=== PATIENT | male | born 1940 | race Caucasian/White ===

== ENCOUNTER → 2016-05-04 | Outpatient (CLI) | payer OTHER | LOC: BHFA 15:30 | PROVIDERS: ATTEND Internal Medicine Cardiovascular Disease | DX: I48.91 Unspecified atrial fibrillation (principal); I35.9 Nonrheumatic aortic valve disorder, unspecified; I27.2 Other secondary pulmonary hypertension ==

== ENCOUNTER → 2016-10-29 | Outpatient (CLI) | payer OTHER | LOC: BHFA 13:45 | PROVIDERS: ATTEND Internal Medicine Interventional Cardiology | DX: I48.91 Unspecified atrial fibrillation (principal) ==

== ENCOUNTER 2016-10-30 06:58 | Emergency (ER) | payer OTHER ==
[2016-10-30] MEDS ORDERED: ONDANSETRON 4 MG/2 ML VIAL IVP ONE (07:06)
[2016-10-30] MEDS ORDERED: NS 1,000 ML IV ONE (07:06)
--- NOTE | 2016-10-30 07:10 | EDPHY ---
H & P Time Seen by Provider: 10/30/16 07:06 HPI/ROS: CHIEF COMPLAINT: Confusion HISTORY OF PRESENT ILLNESS: The patient is a 76-year-old man whose called paramedics reporting that he had a seizure. They were both asleep in bed this morning when he began acting very confused and agitated. He was nonverbal and trying to take off his CPAP machine. His states that he had a seizure about a year ago and presented a similar fashion. No myoclonic movements seen. No incontinence. Slight oral trauma. The patient last time had a CT scan, MRI and EEG that were negative and was eventually placed on seizure medication which he discontinued in August. He has not had any recent infections or illnesses. No recent trauma. He does seem to be clearing gradually. He did not have any focal weakness for EMS and had a normal blood sugar. He was given Versed. According to the medical record he also had an episode of paroxysmal AFib last year as well as a history of aortic valve replacement but he is no longer on any blood thinners. REVIEW OF SYSTEMS: Constitutional: denies: chills, fever, recent illness, recent injury EENTM: denies: blurred vision, double vision, nose congestion Respiratory: denies: cough, shortness of breath Cardiac: denies: chest pain, irregular heart rate, lightheadedness, palpitations Gastrointestinal/Abdominal: denies: abdominal pain, diarrhea, nausea, vomiting, blood streaked stools Genitourinary: denies: dysuria, frequency, hematuria, pain Musculoskeletal: denies: joint pain, muscle pain Skin: denies: lesions, rash, jaundice, bruising Neurological: See HPI Hematologic/Lymphatic: denies: blood clots, easy bleeding, easy bruising Immunologic/allergic: denies: HIV/AIDS, transplant EXAM: GENERAL: well-nourished and in no acute distress. HEAD: Atraumatic, normocephalic. EYES: Pupils equal round and reactive to light, extraocular movements intact, sclera anicteric, conjunctiva are normal. ENT: Bruising to anterior tongue, TMs normal, nares patent, oropharynx clear without exudates. Moist mucous membranes. NECK: Normal range of motion, supple without lymphadenopathy or JVD. LUNGS: Breath sounds clear to auscultation bilaterally and equal. No wheezes rales or rhonchi. HEART: Regular rate and rhythm without murmurs, rubs or gallops. ABDOMEN: Soft, nontender, normoactive bowel sounds. No guarding, no rebound. No masses appreciated. BACK: No CVA tenderness, no spinal tenderness, step-offs or deformities EXTREMITIES: Normal range of motion, no pitting or edema. No clubbing or cyanosis. NEUROLOGICAL: Moving all extremities spontaneously, confused, will follow some commands, will smile equally. With state his name and identify his . Tracks. PSYCH: Normal mood, normal affect. SKIN: Warm, dry, normal turgor, no visible rashes or lesions. Source: Patient, EMS Exam Limitations: No limitations - Medical/Surgical History Hx Asthma: No Hx Chronic Respiratory Disease: No Hx Diabetes: No Hx Cardiac Disease: Yes Hx Renal Disease: No Hx Cirrhosis: No Hx Alcoholism: No Hx HIV/AIDS: No Hx Splenectomy or Spleen Trauma: No Other PMH: Paroxysmal A-FIB, VALVE REPLACED, BACK SURGERY, - Family History Significant Family History: No pertinent family hx - Social History Smoking Status: Former smoker Alcohol Use: Sober Drug Use: None Constitutional: Initial Vital Signs Temperature (C) 36.6 C 10/30/16 07:10 Heart Rate 82 10/30/16 07:10 Respiratory Rate 16 10/30/16 07:10 Blood Pressure 127/77 H 10/30/16 07:10 O2 Sat (%) 93 10/30/16 07:10 O2 Delivery Mode Room Air Allergies/Adverse Reactions: No Known Allergies Allergy (Unverified 10/30/16 07:09) Home Medications: Medication Instructions Recorded Ascorbic Acid [Vitamin C 500 mg 500 mg PO DAILY 01/24/15 (*)] Cholecalciferol Vit D3 [Vitamin D3 1,000 units PO DAILY 01/24/15 (*)] Multivitamins [Multivitamin (*)] 1 each PO DAILY 01/24/15 [place]-3 Fatty Acids [Fish Oil 1000 1,000 mg PO DAILY 01/24/15 mg (*)] Aspirin EC [Aspirin EC 81 mg (*)] 81 mg PO DAILY 06/28/15 Atorvastatin Calcium [Lipitor 10 10 mg PO HS 06/28/15 mg (*)] Metoprolol Tartrate [Lopressor 25 25 mg PO BID #0 tab 06/30/15 mg (*)] Warfarin Sodium [Coumadin 5MG (*)] 5 mg PO DAILY16 #20 tab 06/30/15 levETIRAcetam [Keppra 500 mg (*)] 500 mg PO BID #60 tab 10/30/16 Medical Decision Making - Diagnostics EKG Interpretation: An EKG obtained and was read and documented in trace view. Please see trace view for full reading and report. Sinus rhythm, first-degree block, no acute ischemic changes Imaging Results: Imaging Impressions Head CT 10/30/16 07:07 Impression: 1. No acute intracranial hemorrhage, mass, or swelling. 2. Punctate densities subarachnoid space may be sequela from old infection such as neurocysticercosis or sequela from remote myelogram utilizing Pantopaque contrast. The study was performed as an emergency on-call case and discussed by telephone with Dr. Tenorio at 7:40 AM. The final interpretation is concordant with the original communication. Imaging: Discussed imaging studies w/ crochet beader Radiologist ED Course/Re-evaluation: We discussed the imaging and lab results. The patient has cleared. He is answering all questions appropriately. He is moving all extremities normally. Family is reassured. I suspect that he did have another seizure. I will start him back on his Keppra. He now remembers that this is what he used to take. He states that he took a low dose last time because it made him feel depressed and tired and grumpy. He has a follow-up with his neurologist Dr. Batres at [facility] in 3 weeks. Differential Diagnosis: Partial list of the Differential diagnosis considered include but were not limited to; seizure, hemorrhage and although unlikely based on the history and physical exam, I also considered CVA, acute coronary disease, arrhythmia, infection. I discussed these differential diagnoses and the plan with the patient as well as the usual and expected course. The patient understands that the diagnosis is provisional and that in medicine we are not always correct and that further workup is often warranted. Usual and customary warnings were given. All of the patient's questions were answered. The patient was instructed to return to the emergency department should the symptoms at all worsen or return, otherwise to followup with the physician as we discussed. - Data Points Laboratory Results: Laboratory Results 10/30/16 07:20 10/30/16 07:20 10/30/16 10/30/16 07:20 07:20 WBC 6.53 10^3/uL 10^3/uL (3.80-9.50) RBC 4.49 10^6/uL 10^6/uL (4.40-6.38) Hgb 13.9 g/dL g/dL (13.7-17.5) Hct 40.6 % % (40.0-51.0) MCV 90.4 fL fL (81.5-99.8) MCH 31.0 pg pg (27.9-34.1) MCHC 34.2 g/dL g/dL (32.4-36.7) RDW 12.8 % % (11.5-15.2) Plt Count 131 10^3/uL L 10^3/uL (150-400) MPV 11.1 fL fL (8.7-11.7) Neut % (Auto) 74.9 % H % (39.3-74.2) Lymph % (Auto) 18.1 % % (15.0-45.0) Nicholas % (Auto) 4.9 % % (4.5-13.0) Eos % (Auto) 1.5 % % (0.6-7.6) Baso % (Auto) 0.3 % % (0.3-1.7) Nucleat RBC Rel Count 0.0 % % (0.0-0.2) Absolute Neuts (auto) 4.89 10^3/uL 10^3/uL (1.70-6.50) Absolute Lymphs (auto) 1.18 10^3/uL 10^3/uL (1.00-3.00) Absolute Monos (auto) 0.32 10^3/uL 10^3/uL (0.30-0.80) Absolute Eos (auto) 0.10 10^3/uL 10^3/uL (0.03-0.40) Absolute Basos (auto) 0.02 10^3/uL 10^3/uL (0.02-0.10) Absolute Nucleated RBC 0.00 10^3/uL 10^3/uL (0-0.01) Immature Gran % 0.3 % % (0.0-1.1) Immature Gran # 0.02 10^3/uL 10^3/uL (0.00-0.10) Sodium 139 mEq/L mEq/L (134-144) Potassium 4.1 mEq/L mEq/L (3.5-5.2) Chloride 107 mEq/L mEq/L (97-110) Carbon Dioxide 21 mEq/l L mEq/l (22-31) Anion Gap 11 mEq/L mEq/L (8-16) BUN 28 mg/dL H mg/dL (7-23) Creatinine 1.0 mg/dL mg/dL (0.7-1.3) Estimated GFR > 60 Glucose 104 mg/dL H mg/dL (70-100) Calcium 8.7 mg/dL mg/dL (8.5-10.4) Medications Given: Discontinued Medications Sodium Chloride (Ns) 1,000 mls @ 0 mls/hr IV ONCE ONE; Wide Open PRN Reason: Protocol Stop: 10/30/16 07:07 Last Admin: 10/30/16 07:24 Dose: 1,000 mls Levetiracetam (Keppra) 500 mg PO EDNOW ONE Stop: 10/30/16 08:07 Last Admin: 10/30/16 08:14 Dose: 500 mg Ondansetron HCl (Zofran) 4 mg IVP EDNOW ONE Stop: 10/30/16 07:07 Last Admin: 10/30/16 07:24 Dose: 4 mg Departure - Departure Disposition: Home, Routine, Self-Care Clinical Impression: Seizure disorder Condition: Fair Instructions: Epilepsy (ED) Additional Instructions: Follow up with your neurologist as scheduled Referrals: Patient,NotPresent [Unknown] - As per Instructions Prescriptions: levETIRAcetam [Keppra 500 mg (*)] 500 mg PO BID #60 tab
[2016-10-30 07:12] VITALS: RESP 16
--- NOTE | 2016-10-30 07:32 | CPEKG ---
Heart Rate: 78 RR Interval: 769 P-R Interval: 244 QRSD Interval: 98 QT Interval: 428 QTC Interval: 488 P Taberg: 53 QRS Taberg: -30 T Wave Taberg: 75 EKG Severity - ABNORMAL ECG - EKG Impression: SINUS RHYTHM EKG Impression: FIRST DEGREE AV BLOCK EKG Impression: LOW VOLTAGE IN FRONTAL LEADS EKG Impression: BORDERLINE R WAVE PROGRESSION, ANTERIOR LEADS EKG Impression: BORDERLINE PROLONGED QT INTERVAL Electronically Signed By: Jair Tenorio 30-Oct-2016 07:38:38
[2016-10-30 07:36] LABS: % IMMATURE GRANULYOCYTES 0.3 % (0.0-1.1); ABSOLUTE IMMATURE GRANULOCYTES 0.02 10^3/uL (0.00-0.10); ADD DIFF? NO; ADD MORPH? NO; ADD SCAN? NO; ATYPICAL LYMPHOCYTE FLAG 0 (0-99); FRAGMENT RBC FLAG 0 (0-99); HEMATOCRIT 40.6 % (40.0-51.0); HEMOGLOBIN 13.9 g/dL (13.7-17.5); LEFT SHIFT FLG 0 (0-99); LIPEMIA HEMOLYSIS FLAG 90 (0-99); MEAN CELL HEMOGLOBIN CONCENTR. 34.2 g/dL (32.4-36.7); MEAN CELL VOLUME 90.4 fL (81.5-99.8); MEAN PLATELET VOLUME 11.1 fL (8.7-11.7); PLATELET CLUMPS FLAG 10 (0-99); PLATELET COUNT 131 10^3/uL (150-400); RED BLOOD CELL COUNT 4.49 10^6/uL (4.40-6.38); RED CELL DISTRIBUTION WIDTH 12.8 % (11.5-15.2)
[2016-10-30 07:48] LABS: ANION GAP 11 mEq/L (8-16); CALCIUM 8.7 mg/dL (8.5-10.4); CARBON DIOXIDE 21 mEq/l (22-31); CHLORIDE 107 mEq/L (97-110); GLOMERULAR FILTRATION RATE > 60; GLUCOSE 104 mg/dL (70-100); POTASSIUM 4.1 mEq/L (3.5-5.2); SODIUM 139 mEq/L (134-144)
[2016-10-30] MEDS ORDERED: levETIRAcetam 500 MG TAB PO ONE (08:06)
[2016-10-30 08:24] VITALS: BP 138/75; PULSE 69; TEMP 97.5; O2SAT 94
== END 2016-10-30 08:38 | disposition home or self-care (01) ==
LOC: EDUNIT#
DX: G40.909 Epilepsy, unspecified, not intractable, without status epilepticus (principal); E86.9 Volume depletion, unspecified; Z79.01 Long term (current) use of anticoagulants; Z79.82 Long term (current) use of aspirin; Z87.891 Personal history of nicotine dependence
CPT/HCPCS: 70450; 93005; 96361; 96374; 99285; J2405

== ENCOUNTER 2017-07-10 08:15 | Inpatient (IN) | payer OTHER ==
--- NOTE | 2017-07-10 07:08 | PDHPUP ---
History & Physical Update H&P update statement: This history and physical update is based on an assessment of the patient which was completed after admission or registration (within 24 hours), but prior to the surgery/procedure. H&P update: H&P reviewed & patient examined, no change in patient's condition since H&P completed
[~2017-07-10 08:15] MED LIST: BUPI/epINEPH/KETOROLAC IU ONE; ROPIVACAINE 0.2% 80 MG, EPINEPHrine 0.2 MG, KETOROLAC TROMETHAMINE 30 MG in SYRINGE 0 ML IU ONE; TRANEXAMIC ACID 3,000 MG in NS (SYRINGE) 50 ML IRR ONE
[2017-07-10] MEDS ORDERED: TRANEXAMIC ACID 3,000 MG/50 ML BAG IRR ONE (10:01)
[2017-07-10] MEDS ORDERED: ceFAZolin 2 GM/SWFI 2 GM/20 ML SYR IVP ONE (10:02)
[2017-07-10] MEDS ORDERED: LR 1,000 ML IV ONE (10:02)
[2017-07-10] MEDS ORDERED: FAMOTIDINE 20 MG TAB PO ONE (10:02)
[2017-07-10] MEDS ORDERED: DEXAMETHASONE 4 MG/ML VIAL IVP ONE (10:02)
[2017-07-10] MEDS ORDERED: ACETAMINOPHEN 325 MG TAB PO ONE (10:02)
[2017-07-10] MEDS ORDERED: LIDOCAINE 1% 2 ML INJ ID PRN (10:02)
[2017-07-10] MEDS ORDERED: MIDAZOLAM 2 MG/2 ML VIAL ONE (11:57)
[2017-07-10] MEDS ORDERED: PROPOFOL/EMULSION 500 MG/50 ML BOTTLE IV ONE (11:57)
--- NOTE | 2017-07-10 12:21 | PDANEPAE ---
ANE Past Medical History - Cardiovascular History Hx Hypertension: No Hx Arrhythmias: Yes Hx Chest Pain: No Hx Coronary Artery / Peripheral Vascular Disease: Yes Hx CHF / Valvular Disease: Yes Hx Palpitations: No Cardiovascular History Comment: CAD. BICUPSID AORTIC VALVE. DYSLIPIDEMIA - Pulmonary History Hx COPD: No Hx Asthma/Reactive Airway Disease: No Hx Recent Upper Respiratory Infection: No Hx Oxygen in Use at Home: No Hx Sleep Apnea: No Sleep Apnea Screening Result - Last Documented: Positive Pulmonary History Comment: JASMEET WITH C-PAP - Neurologic History Hx Cerebrovascular Accident: No Hx Seizures: Yes Hx Dementia: No Neurologic History Comment: Seizures x2 on keppra - Endocrine History Hx Diabetes: No - Renal History Hx Renal Disorders: No - Liver History Hx Hepatic Disorders: No - Neurological & Psychiatric Hx Hx Neurological and Psychiatric Disorders: No - Cancer History Hx Cancer: No - Congenital Disorder History Hx Congenital Disorders: Yes Congenital History Comment: valve disease - GI History Hx Gastrointestinal Disorders: No - Other Health History Other Health History: none - Chronic Pain History Chronic Pain: Yes (lower back) - Surgical History Prior Surgeries: [employer] 01/26/15. 40 YEARS AGO RUPTURED DISC WITH LOCAL. BROKEN ARM REPAIR. AVR Bovine valve ANE Review of Systems Review of Systems: - Exercise capacity METS (RN): 4 METS ANE Patient History - Allergies Allergies/Adverse Reactions: No Known Allergies Allergy (Verified 07/10/17 10:21) - Home Medications Home Medications: Multivitamins [Multivitamin (*)] 1 each PO DAILY 01/24/15 [Last Taken 06/26/17] Atorvastatin Calcium [Lipitor 10 mg (*)] 10 mg PO DAILY18 06/28/15 [Last Taken 07/09/17 21:30] Aspirin [Aspirin 325 mg (*)] 325 mg PO HS 06/07/17 [Last Taken 06/26/17] Herbals/Supplements -Info Only 1 each PO DAILY 06/07/17 [Last Taken 06/26/17] Naproxen Sodium [Aleve 220 MG (*)] 440 mg PO Q2D PRN 06/07/17 [Last Taken ] - NPO status NPO Since - Liquids (Date): 07/10/17 NPO Since - Liquids (Time): 18:15 NPO Since - Solids (Date): 07/09/17 NPO Since - Solids (Time): 18:30 - Smoking Hx Smoking Status: Former smoker - Family Anes Hx Family Hx Anesthesia Complications: NONE ANE Labs/Vital Signs - Vital Signs Blood Pressure: 144/79 Heart Rate: 59 Respiratory Rate: 16 O2 Sat (%): 92 Height: 193.04 cm Weight: 113.398 kg ANE Physical Exam - Airway Neck exam: FROM Mallampati Score: Class 3 Mouth exam: normal dental/mouth exam - Pulmonary Pulmonary: no respiratory distress - Cardiovascular Cardiovascular: regular rate and rhythym - ASA Status ASA Status: III ANE Anesthesia Plan Anesthesia Plan: spinal Total IV Anesthesia: Yes
[2017-07-10] MEDS ORDERED: PROPOFOL 200 MG/20 ML VIAL ONE (12:51)
[2017-07-10] MEDS ORDERED: MAGNESIUM HYDROXIDE 30 ML UDCUP PO PRN (13:23)
[2017-07-10] MEDS ORDERED: ONDANSETRON 4 MG/2 ML VIAL IVP PRN (13:23)
[2017-07-10] MEDS ORDERED: PROMETHAZINE HCL 25 MG SUPPR PR PRN (13:23)
[2017-07-10] MEDS ORDERED: CYCLOBENZAPRINE 10 MG TAB PO PRN (13:23)
[2017-07-10] MEDS ORDERED: TEMAZEPAM 15 MG CAP PO PRN (13:23)
[2017-07-10] MEDS ORDERED: ONDANSETRON DISINTEGRATING 4 MG TAB PO PRN (13:23)
[2017-07-10] MEDS ORDERED: METOCLOPRAMIDE 10 MG/2 ML VIAL IVP PRN (13:23)
[2017-07-10] MEDS ORDERED: DIPHENOXYLATE/ATROPINE LOMOTIL 1 TAB PO PRN (13:23)
[2017-07-10] MEDS ORDERED: PROMETHAZINE HCL 25 MG/ML INJ IVP PRN (13:23)
[2017-07-10] MEDS ORDERED: diphenhydrAMINE 25 MG CAP PO PRN (13:23)
[2017-07-10] MEDS ORDERED: BISACODYL 10 MG SUPP PR PRN (13:23)
[2017-07-10] MEDS ORDERED: LACTULOSE 20 GM/30 ML UDCUP PO PRN (13:23)
--- NOTE | 2017-07-10 13:23 | POSTOPPROG ---
Post Op Note Date of Operation: 07/10/17 Surgeon: Esmer Villatoro Mail Processing Machine Operator: cori villatoro Anesthesiologist: dr. gleason Anesthesia: Spinal Pre-op Diagnosis: left hip OA Post-op Diagnosis: same Indication: left hip pain Procedure: L OMAR ant approach Findings: severe hip OA Inf/Abcess present in the surg proc area at time of surgery?: No EBL: 100-500
[2017-07-10] MEDS ORDERED: LR 1,000 ML IV SCH (13:30)
[2017-07-10] MEDS ORDERED: ceFAZolin 2 GM/DEXTROSE 100 ML IV SCH (14:00)
--- NOTE | 2017-07-10 17:02 | PDMN ---
Medical Necessity Medical necessity: IP surgery per [facility] cpt [id number] L OMAR
[2017-07-10] MEDS: ACETAMINOPHEN 325 MG TAB PO SCH (17:18)
[2017-07-10] MEDS: ATORVASTATIN CALCIUM 10 MG TAB PO SCH (17:20)
[2017-07-10] MEDS: ceFAZolin 2 GM/SWFI 2 GM/20 ML SYR IVP SCH (19:51)
[2017-07-10] MEDS: ASPIRIN 81 MG CHEWABLE TAB PO SCH (19:52)
[2017-07-10] MEDS: FAMOTIDINE 20 MG TAB PO SCH (19:52)
[2017-07-10] MEDS: SENNOSIDES/DOCUSATE SODIUM TAB PO SCH (19:53)
[2017-07-10] MEDS: levETIRAcetam 500 MG TAB PO SCH (20:02)
[2017-07-11] MEDS: ACETAMINOPHEN 325 MG TAB PO SCH ×4 (00:02→17:48)
[2017-07-11] MEDS: ceFAZolin 2 GM/SWFI 2 GM/20 ML SYR IVP SCH (04:19)
[2017-07-11] MEDS: levETIRAcetam 500 MG TAB PO SCH ×2 (08:57→20:14)
[2017-07-11] MEDS: ASPIRIN 81 MG CHEWABLE TAB PO SCH ×2 (08:58→20:14)
[2017-07-11] MEDS: POLYETHYLENE GLYCOL 3350 17 GM PKT PO PRN (08:58)
[2017-07-11] MEDS: FAMOTIDINE 20 MG TAB PO SCH ×2 (08:58→20:15)
[2017-07-11] MEDS: SENNOSIDES/DOCUSATE SODIUM TAB PO SCH ×2 (08:58→20:15)
--- NOTE | 2017-07-11 09:09 | SOAPPROG ---
SOAP Progress Note Assessment/Plan: Assessment: Patient is doing well POD 1 s/p L OMAR Pain management: pain is well controlled on oral pain meds. VTE ppx: recommend aspirin 81 mg BID for 4 weeks, cont REFUGIO and SCDs Anemia: level is expected initially postop. Asymptomatic. Continue to monitor D/c planning: d/c to home today vs tomorrow pending release from PT and patient' s comfort level. This morning he states he would prefer one more night due to history of afib Plan: 07/11/17 09:08 Subjective: patient is resting comfortably, denies SOB, chest pain and N/V. Objective: Vital Signs Temp Pulse Resp BP Pulse Ox 36.5 C 60 16 133/75 H 94 07/11/17 08:00 07/11/17 08:00 07/11/17 08:00 07/11/17 08:00 07/11/17 08:00 Laboratory Results 07/11/17 04:53 07/10/17 07/11/17 07/12/17 05:59 05:59 05:59 Intake Total 2406 Output Total 950 Balance 1456 LLE; Incision dressing is clean and dry, NVI, +pf/df ICD10 Worksheet Patient Problems: Problems Problem Status Onset Primary localized osteoarthritis of left hip Acute Atrial fibrillation Acute PAF (paroxysmal atrial fibrillation) Acute S/P aortic valve replacement and aortoplasty Acute Severe calcific aortic valve stenosis Acute Aortic valve insufficiency Chronic Ascending aorta dilatation Chronic Thyroid nodule Chronic
--- NOTE | 2017-07-11 09:54 | GOP ---
[f rep st] OPERATIVE REPORT DATE OF OPERATION: 07/10/2017 SURGEON: Luciano Yip MD MULTIPLE DRILL OPERATOR: WILL Mello. ANESTHESIA: Spinal. PREOPERATIVE DIAGNOSIS: Left hip osteoarthritis. POSTOPERATIVE DIAGNOSIS: Left hip osteoarthritis. PROCEDURE PERFORMED: Left total hip arthroplasty with x-ray. FINDINGS: ESTIMATED BLOOD LOSS: 200 cc. INDICATIONS: The patient has progressively worsening arthritis of the hip which has failed medical m anagement. The patient understands the treatment options including continued non-operative care and has selected surgical intervention. The patient has decided to undergo total hip arthroplasty via th e direct anterior approach, understanding the risks of the procedure including, but not limited to, n eurovascular injury, infection, persistent pain, component wear and loosening, deep venous thrombosis , pulmonary embolism, limb length inequality, hip instability (including dislocation), and intra-oper ative fractures. DESCRIPTION OF PROCEDURE: After proper identification of the patient including verification and solomon ing the surgical site, the patient was brought to the operating room and placed in the supine positio n. All bony prominences were well padded. Anesthesia was induced without complication and intraveno us prophylactic antibiotics were administered prior to skin incision. The operative leg was placed in the Trumpf Arch table extension and the well leg in a Yellofin leg ho lder. The patient was prepped and draped in the usual sterile fashion. The C-arm was draped for int ra-operative fluoroscopy to check acetabular position, femoral component position including leg lengt h and femoral offset. Attention was then drawn to surgical exposure of the hip. An incision was made with a #10 Bard Yara r blade starting 3 cm lateral and 3 cm distal to the anterior superior iliac spine measuring 8-10 cm and coursing distally toward the greater trochanter. The skin and subcutaneous tissues were divided sharply down to the fascia frances. The fascia frances was incised in line with the skin incision exposing the underlying tensor fascia frances muscle. The muscle was bluntly elevated from the fascia and the f irst extracapsular Cobra retractor was placed laterally at the junction of the superior femoral neck and greater trochanter. The lateral femoral circumflex vessels were identified, cauterized, and divi ded with the Aquamantys bipolar cautery. The deep investing fascia of the TFL was divided to allow p lucius mobilization of the muscle preventing damage during the retraction. The reflected head of the rectus femoris muscle was elevated off the anterior hip capsule and a medial Cobra retractor was plac ed just proximal to the lesser trochanter. The anterior capsulotomy was made sharply from the superolateral acetabulum to the saddle junction of the superior femoral neck and greater trochanter, then coursing inferomedial towards the lesser troc hanter. The retractors were then placed in the intracapsular position for femoral neck osteotomy. C orresponding to pre-operative templating, the osteotomy was made with the oscillating saw carefully p rotecting the greater trochanter and soft tissues. The femoral head was removed from the acetabulum with a corkscrew and confirmed to be severely arthritic with exposed bone, deformity and osteophytes. Similar findings were confirmed in the acetabulum. The Arch table extension was then placed in 40 degrees external rotation. Attention was then drawn to the acetabular preparation. After placement of the anterior and posterio r Cobra retractors outside the labrum and intracapsular, the circumferential labrum was removed sharp ly. The foveal contents were then removed and hemostasis obtained with cautery. The first reamer selected was sized using the removed femoral head. Reaming began with medialization and then commenced in 2 mm increments at 45 degrees of abduction and 15 degrees of anteversion using fluoroscopic navigation. Reaming ceased 1 mm less than the definitive acetabular component and nicolasa esponded to the pre-operative templating. The final acetabular component was inserted using fluorosc opy to achieve proper orientation yielding excellent purchase and stability in the acetabulum. The f inal acetabular liner was then placed and its seating confirmed. Attention was then turned to the femur. The Arch table extension was placed in extension and adducti on, delivering the osteotomized femoral neck into the wound. A 2-pronged femoral elevator was placed at the calcar and another at the tip of the greater trochanter. The posterolateral capsule was rele ased with cautery allowing mobilization of the femur lateral and anterior for preparation. The exter nal rotators were visualized and preserved. A curette and rongeur were used to open the starting poi nt for broaching. Serial broaching started with the #0 broach and ended with the broach that exhibit ed excellent fit in the proximal femur. A change in pitch during mallet strikes was accompanied by t he inability to advance the broach any further. The trial reduction was performed and fluoroscopic n avigation was utilized to check limb length. Adjustments were made to equalize limb length according ly. After the final trials were accepted they were removed and the wound was copiously lavaged. The femo ral component was seated to the same depth as the final broach and the femoral head was impacted onto the clean trunnion. The hip was then reduced for the final time and once more fluoroscopy was used to check that limb length equality was achieved. The wound was irrigated and closed in layers, the fascia frances with 2-0 Quill, the subcutaneous tissue with 2-0 Quill, and the skin with Dermabond. Sterile dressings were applied. Final sharps and spon ge counts were accurate. The patient was then transferred to a hospital bed and brought to the [facility] room in stable condition. IMPLANTS: Accolade II size 10 at 127. Acetabular component Trident II 58 mm. The head is a Biolox Delta 36 mm +2.5. The liner is a Trident X3, 36 mm. /[id number]/MODL
--- NOTE | 2017-07-11 10:04 | GDS ---
[f rep st] DISCHARGE SUMMARY ADMISSION DIAGNOSIS: Left hip osteoarthritis. DISCHARGE DIAGNOSIS: Left hip osteoarthritis. PROCEDURE: Left total hip arthroplasty. VTE PROPHYLAXIS: Recommend baby aspirin 81 mg twice daily for a month. BRIEF DESCRIPTION OF HOSPITAL STAY: Patient was admitted for an elective joint arthroplasty. The pa ciara tolerated the procedure well and has passed physical therapy. The patient was given appropriat e antibiotic prophylaxis and venous thromboembolism prophylaxis. The patient's pain was well control led on oral pain medication, patient was holding down food, and had urinated. Decision was made to d ischarge the patient. The patient was given post-operative prescriptions pre-operatively. PLAN: Follow up as scheduled Dr. Yip's office, August 01 at 9:45. /[id number]/MODL
[2017-07-11] MEDS: oxyCODONE IR 5 MG TAB PO PRN (14:55)
[2017-07-11] MEDS: ATORVASTATIN CALCIUM 10 MG TAB PO SCH (17:49)
[2017-07-12] MEDS: ACETAMINOPHEN 325 MG TAB PO SCH ×3 (00:26→12:46)
[2017-07-12] MEDS: oxyCODONE IR 5 MG TAB PO PRN (04:48)
[2017-07-12 07:49] VITALS: BP 130/69
--- NOTE | 2017-07-12 08:48 | SOAPPROG ---
SOAP Progress Note Assessment/Plan: Assessment: Patient is doing well POD 2 s/p L OMAR Pain management: pain is well controlled on oral pain meds. VTE ppx: recommend aspirin 81 mg BID for 4 weeks, cont REFUGIO and SCDs Anemia: level is expected initially postop. Asymptomatic. Continue to monitor D/c planning: d/c to home today Plan: 07/11/17 09:08 07/12/17 08:47 Subjective: patient would like to d/c to home today, mild pain Objective: Vital Signs Temp Pulse Resp BP Pulse Ox 36.6 C 65 15 130/69 H 96 07/12/17 07:45 07/12/17 07:45 07/12/17 07:45 07/12/17 07:45 07/12/17 07:45 Laboratory Results 07/12/17 04:48 07/11/17 07/12/17 07/13/17 05:59 05:59 05:59 Intake Total 2406 500 Output Total 950 Balance 1456 500 LLE: incision dressing is clean and dry, NVI, +pf/df ICD10 Worksheet Patient Problems: Problems Problem Status Onset Primary localized osteoarthritis of left hip Acute Atrial fibrillation Acute PAF (paroxysmal atrial fibrillation) Acute S/P aortic valve replacement and aortoplasty Acute Severe calcific aortic valve stenosis Acute Aortic valve insufficiency Chronic Ascending aorta dilatation Chronic Thyroid nodule Chronic
[2017-07-12] MEDS: levETIRAcetam 500 MG TAB PO SCH (09:07)
[2017-07-12] MEDS: SENNOSIDES/DOCUSATE SODIUM TAB PO SCH (09:07)
[2017-07-12] MEDS: FAMOTIDINE 20 MG TAB PO SCH (09:07)
[2017-07-12] MEDS: POLYETHYLENE GLYCOL 3350 17 GM PKT PO PRN (09:07)
[2017-07-12] MEDS: ASPIRIN 81 MG CHEWABLE TAB PO SCH (09:07)
== END 2017-07-12 12:53 | disposition home or self-care (01) | DRG 470 ==
LOC: F3N 09:52
PROVIDERS: ADMIT Orthopaedic Surgery; ATTEND Orthopaedic Surgery
PROC: 0SRB04Z Replacement of Left Hip Joint with Ceramic on Polyethylene Synthetic Substitute, Open Approach (ICD-10-PCS; principal; 2017-07-10 12:15)
DX: M16.12 Unilateral primary osteoarthritis, left hip (principal); D64.9 Anemia, unspecified; G40.909 Epilepsy, unspecified, not intractable, without status epilepticus; G47.30 Sleep apnea, unspecified; Z95.2 Presence of prosthetic heart valve
CPT/HCPCS: 97116-GP; 97161-GP; 97165-GO; G8978-GP-CJ; G8979-GP-CI; G8980-GP-CI; G8987-GO-CI; G8988-GO-CI; G8989-GO-CI; J0171; J0690; J1100; J1885; J2250; J2704